=== PATIENT | female | born 1980 | race Caucasian/White ===

== ENCOUNTER 2018-03-15 10:25 | Day surgery (SDC) | payer OTHER ==
[~2018-03-15] VITALS: Ht 160 cm; Wt 89.5 kg
[~2018-03-15 10:25] MED LIST: ACET500 PO; AMOCLA875 PO; AMOX500 PO; CEPH500 PO; CIPR500 PO; CIPRSO AD; CLON.1 PO; CRUTCH3 USE; CYCL10 PO; DIAZ10 PO; DIAZ5 PO; DIPH50 PO; ERYT.5TO OD; HYDACE5 PO; HYDPAM50 PO; IBUHYD PO; IBUP600 PO; IBUP800 PO; IBUPROFEN; MEDR10 PO; MELO7.5 PO; META800 PO; Macrobid 100 M100 MG PO; NAPR500 PO; NAPR550 PO; NICO21TP; ONDA4ODT MM; OXYACE5T PO; OXYC10TA19; PARO20 PO; PENVK500 PO; PHENA200 PO; PRENATAL; PROM25 PO; RANI150; RXANTBENOT AU; RXOXYACE PO; SUBUTEX; SULTRIDS PO; TRAM50 PO; TRAZ50 PO
[2018-03-15] MEDS ORDERED: Omeprazole20 M1 (10:40)
[2018-03-15] MEDS ORDERED: BUPRENORPHINE HC8 MG (10:42)
== END 2018-03-15 11:53 | disposition home or self-care (01) ==
LOC: ORSCSDS 10:25
PROVIDERS: Internal Medicine Gastroenterology
PROC: 0DB88ZX Excision of Small Intestine, Via Natural or Artificial Opening Endoscopic, Diagnostic (ICD-10-PCS; principal; 2018-03-15 11:45)
PROC: 0DB68ZX Excision of Stomach, Via Natural or Artificial Opening Endoscopic, Diagnostic (ICD-10-PCS; principal; 2018-03-15 11:45)
DX: R11.2 Nausea with vomiting, unspecified (principal); K29.70 Gastritis, unspecified, without bleeding; K29.80 Duodenitis without bleeding; K21.9 Gastro-esophageal reflux disease without esophagitis; D64.9 Anemia, unspecified; K59.00 Constipation, unspecified; E66.9 Obesity, unspecified; Z68.35 Body mass index [BMI] 35.0-35.9, adult; Z79.899 Other long term (current) drug therapy
CPT/HCPCS: 88305; 88342; J2250

== ENCOUNTER → 2018-12-21 09:30 | Emergency (ER) | payer OTHER ==
[~2018-12-21] VITALS: Wt 113.4 kg
[~2018-12-21 09:30] MED LIST changes: +BUPRENORPHINE HC8 MG; +Omeprazole20 M1
== END | disposition left against medical advice (07) ==
LOC: ER 09:30
DX: Z53.21 Procedure and treatment not carried out due to patient leaving prior to being seen by health care provider (principal)

== ENCOUNTER 2019-06-06 20:11 | Emergency (ER) | payer OTHER ==
[~2019-06-06] VITALS: Ht 157.5 cm; Wt 93.0 kg
== END 2019-06-06 21:35 | disposition home or self-care (01) ==
LOC: ER 20:11
DX: S50.12XA Contusion of left forearm, initial encounter (principal); S80.212A Abrasion, left knee, initial encounter; F17.200 Nicotine dependence, unspecified, uncomplicated; Z88.8 Allergy status to other drugs, medicaments and biological substances; V29.9XXA Motorcycle rider (driver) (passenger) injured in unspecified traffic accident, initial encounter
CPT/HCPCS: 73090; 99283-25

== ENCOUNTER 2020-07-18 23:18 | Emergency (ER) | payer OTHER ==
[~2020-07-18] VITALS: Ht 160 cm; Wt 113.4 kg
[2020-07-19] MEDS ORDERED: CLON.1 PO (02:43)
[2020-07-19] MEDS ORDERED: PROPRANOLOL HCL80 MG PO (02:43)
[2020-07-19] MEDS ORDERED: Potassium Chlo20 ME1 PO (02:44)
[2020-07-19] MEDS ORDERED: MGO400 MG PO (02:44)
[2020-07-19] MEDS ORDERED: Phenergan25 M1 PO (02:44)
[2020-07-19] MEDS ORDERED: Methadose 40 mg40 MG PO (02:45)
== END 2020-07-19 04:30 | disposition left against medical advice (07) ==
LOC: ER 23:18
DX: Z53.21 Procedure and treatment not carried out due to patient leaving prior to being seen by health care provider (principal)

== ENCOUNTER 2021-09-06 13:39 | Emergency (ER) | payer OTHER ==
[~2021-09-06] VITALS: Ht 154.9 cm; Wt 104.3 kg
[~2021-09-06 13:39] MED LIST changes: +MGO400 MG PO; +Methadose 40 mg40 MG PO; +PROPRANOLOL HCL80 MG PO; +Phenergan25 M1 PO; +Potassium Chlo20 ME1 PO
== END 2021-09-06 14:45 | disposition home or self-care (01) ==
LOC: ER 13:39
DX: J06.9 Acute upper respiratory infection, unspecified (principal); Z20.822 Contact with and (suspected) exposure to COVID-19; F17.200 Nicotine dependence, unspecified, uncomplicated; Z88.8 Allergy status to other drugs, medicaments and biological substances; Z79.899 Other long term (current) drug therapy
CPT/HCPCS: 99284

== ENCOUNTER → 2023-02-09 | Outpatient (CLI) | payer OTHER ==
[2023-02-09 15:47] LABS: BASOPHILS ABSOLUTE AUTO 0.03 K/mm3 (0.00-0.23); BASOPHILS PERCENT AUTO 0 % (0-2); EOSINOPHILS ABSOLUTE AUTO 0.24 K/mm3 (0.00-0.68); EOSINOPHILS PERCENT AUTO 3 % (0-6); Hematocrit 39.9 % (33.0-51.0); Hemoglobin 12.7 g/dL (11.5-16.0); IMMATURE GRAN ABSOLUTE AUTO 0.03 K/mm3 (0.00-0.10); IMMATURE GRAN PERCENT AUTO 0 % (0-1); LYMPHOCYTES PERCENT AUTO 38 % (21-46); MONOCYTES ABSOLUTE AUTO 0.57 K/mm3 (0.16-1.47); MONOCYTES PERCENT AUTO 7 % (4-13); Mean Corpuscular HGB 27.9 pg (26.0-34.0); Mean Corpuscular HGB Conc 31.8 g/dL (31.5-36.5); Mean Corpuscular Volume 88 fL (80-100); Mean Platelet Volume 10.5 fL (9.1-12.4); NEUTROPHILS ABSOLUTE AUTO 3.93 K/mm3 (1.96-9.15); NEUTROPHILS PERCENT AUTO 51 % (41-73); Platelet Count 247 K/mm3 (150-400); RDW Coefficient Variation 14.3 % (11.7-14.2); RDW Standard Deviation 45.9 fL (35.1-46.3); Red Blood Cell Count 4.56 M/mm3 (3.80-5.20)
[2023-02-09 16:09] LABS: Albumin, Blood 3.6 g/dL (3.4-5.0); Albumin/Globulin Ratio 0.9 (0.8-1.8); Bilirubin, Total 0.1 mg/dL (0.1-1.0); Bun/Creatinine Ratio 18.1 (12.0-20.0); Calcium, Blood 9.1 mg/dL (8.5-10.1); Creatinine, Blood 1.05 mg/dL (0.40-1.00); Globulin, Blood 4.1 g/dL (2.2-4.0); Potassium, Blood 3.9 mmol/L (3.5-5.5); Thyroid Stimulating Hormone 3.021 uIU/mL (0.360-4.800); Total Protein, Blood 7.7 g/dL (6.4-8.2)
== END | disposition home or self-care (01) ==
LOC: LAB 15:40 → LAB SHORT 15:40
PROVIDERS: Chiropractor
DX: R06.09 Other forms of dyspnea (principal); R53.83 Other fatigue; R60.0 Localized edema
CPT/HCPCS: 80053; 83880; 84443; 84484; 85025; 85379

== ENCOUNTER 2024-05-05 15:19 | Emergency (ER) | payer OTHER ==
[~2024-05-05] VITALS: Ht 154.9 cm; Wt 117.9 kg
[2024-05-05 15:33] VITALS: BP 144/98
[2024-05-05] MEDS ORDERED: Ketorolac Tromethamine 30mg Vial IV ONE (16:00)
[2024-05-05] MEDS ORDERED: Acetaminophen 325 MG TABLET PO ONE (16:00)
[2024-05-05] MEDS ORDERED: Cyclobenzaprine HCl 10 MG Tab PO ONE (16:05)
[2024-05-05] MEDS ORDERED: Lidocaine 4% 1 Patch TOP ONE (16:05)
[2024-05-05] MEDS ORDERED: Ketorolac Tromethamine 15mg Vial IM ONE (16:50)
[2024-05-05] MEDS ORDERED: LIDO700A20 TOP (17:23)
[2024-05-05] MEDS ORDERED: CYCL10 PO (17:23)
== END 2024-05-05 18:03 | disposition home or self-care (01) ==
LOC: ER 15:19
DX: T14.8XXA Other injury of unspecified body region, initial encounter (principal); M54.6 Pain in thoracic spine; M54.50 Low back pain, unspecified; V89.2XXA Person injured in unspecified motor-vehicle accident, traffic, initial encounter; Z88.8 Allergy status to other drugs, medicaments and biological substances; Z79.899 Other long term (current) drug therapy; F17.200 Nicotine dependence, unspecified, uncomplicated; G47.00 Insomnia, unspecified; F43.10 Post-traumatic stress disorder, unspecified
CPT/HCPCS: 71046; 72040; 72100; 72170; 96372; 99284-25; A9270; J1885

== ENCOUNTER 2024-12-08 23:02 | Emergency (ER) | payer OTHER ==
[~2024-12-08] VITALS: Ht 160 cm; Wt 127.0 kg
[~2024-12-08 23:02] MED LIST changes: +LIDO700A20 TOP
[2024-12-08 23:08] VITALS: BP 154/104
== END 2024-12-08 23:29 | disposition left against medical advice (07) ==
LOC: ER 23:02
DX: M79.89 Other specified soft tissue disorders (principal); Z53.29 Procedure and treatment not carried out because of patient's decision for other reasons
CPT/HCPCS: 71046; 99281-25

== ENCOUNTER → 2024-12-29 | Outpatient (CLI) | payer OTHER ==
[2024-12-29 16:37] LABS: BASOPHILS ABSOLUTE AUTO 0.03 K/mm3 (0.00-0.23); BASOPHILS PERCENT AUTO 1 % (0-2); EOSINOPHILS ABSOLUTE AUTO 0.23 K/mm3 (0.00-0.68); EOSINOPHILS PERCENT AUTO 4 % (0-6); Hematocrit 38.4 % (33.0-51.0); Hemoglobin 12.3 g/dL (11.5-16.0); IMMATURE GRAN ABSOLUTE AUTO 0.01 K/mm3 (0.00-0.10); IMMATURE GRAN PERCENT AUTO 0 % (0-1); LYMPHOCYTES ABSOLUTE AUTO 1.92 K/mm3 (0.84-5.20); LYMPHOCYTES PERCENT AUTO 31 % (21-46); MONOCYTES ABSOLUTE AUTO 0.49 K/mm3 (0.16-1.47); MONOCYTES PERCENT AUTO 8 % (4-13); Mean Corpuscular HGB 27.6 pg (26.0-34.0); Mean Corpuscular Volume 86 fL (80-100); Mean Platelet Volume 10.2 fL (9.1-12.4); NEUTROPHILS ABSOLUTE AUTO 3.57 K/mm3 (1.96-9.15); NEUTROPHILS PERCENT AUTO 57 % (41-73); Platelet Count 213 K/mm3 (150-400); RDW Coefficient Variation 13.8 % (11.7-14.2); RDW Standard Deviation 42.5 fL (35.1-46.3); Red Blood Cell Count 4.45 M/mm3 (3.80-5.20); White Blood Cell Count 6.25 K/mm3 (4.00-11.30)
[2024-12-29 16:49] LABS: Albumin, Blood 3.5 g/dL (3.4-5.0); Bilirubin, Total 0.3 mg/dL (0.1-1.0); Bun/Creatinine Ratio 17.3 (12.0-20.0); Calcium, Blood 9.4 mg/dL (8.5-10.1); Creatinine, Blood 0.98 mg/dL (0.40-1.00); Globulin, Blood 3.6 g/dL (2.2-4.0); Potassium, Blood 4.3 mmol/L (3.5-5.5); Total Protein, Blood 7.1 g/dL (6.4-8.2)
== END | disposition home or self-care (01) ==
LOC: LAB SHORT 16:33
PROVIDERS: Emergency Medicine
DX: L03.116 Cellulitis of left lower limb (principal)
CPT/HCPCS: 80053; 83880; 84484; 85025

== ENCOUNTER 2025-10-18 02:15 | Emergency (ER) | payer OTHER ==
[~2025-10-18] VITALS: Ht 154.9 cm; Wt 136.1 kg
[2025-10-18 03:00] VITALS: BP 123/75
== END 2025-10-18 03:30 | disposition home or self-care (01) ==
LOC: ER 02:15
DX: I89.0 Lymphedema, not elsewhere classified (principal); I87.2 Venous insufficiency (chronic) (peripheral); Z79.899 Other long term (current) drug therapy; Z88.8 Allergy status to other drugs, medicaments and biological substances; F43.10 Post-traumatic stress disorder, unspecified; F17.200 Nicotine dependence, unspecified, uncomplicated
CPT/HCPCS: 99282